=== PATIENT | male | born 1945 | race Caucasian/White ===

== ENCOUNTER 2019-11-14 07:24 | Day surgery (SDC) | payer MEDICARE ==
[~2019-11-14] VITALS: Ht 177.8 cm; Wt 69.2 kg
[2019-11-14 07:49] VITALS: BP 139/90
[2019-11-14] MEDS ORDERED: SODIUM CHLORIDE 0.9% 1,000 ML IV SCH (07:50)
[2019-11-14] MEDS ORDERED: CEFAZOLIN PMX 1GM/50ML 50 ML IV ONE (08:00)
[2019-11-14] MEDS ORDERED: LIDOCAINE 1%, 20ML ONE (08:54)
[2019-11-14] MEDS ORDERED: MIDAZOLAM 1 MG/ML, 5ML ONE ×2 (09:02)
[2019-11-14] MEDS ORDERED: NALOXONE 1 MG/ML, 2ML ONE (09:02)
[2019-11-14] MEDS ORDERED: FLUMAZENIL 0.1 MG/1 ML, 5ML ONE (09:02)
[2019-11-14] MEDS ORDERED: FENTANYL PF 100 MCG/2ML ONE (09:02)
== END 2019-11-14 11:40 | disposition home or self-care (01) ==
LOC: OUT 07:24
PROVIDERS: ATTEND Specialist
DX: C18.7 Malignant neoplasm of sigmoid colon (principal); C78.02 Secondary malignant neoplasm of left lung; F12.10 Cannabis abuse, uncomplicated; Z79.899 Other long term (current) drug therapy; Z90.49 Acquired absence of other specified parts of digestive tract; Z80.1 Family history of malignant neoplasm of trachea, bronchus and lung
CPT/HCPCS: 36561; 76937; 77001; 99156; 99157; C1788; J0690; J1642; J2250; J3010; J7030; J2310